=== PATIENT | female | born 1990 | race Two or more races ===

== ENCOUNTER 2018-09-18 02:32 | Inpatient (IN) | payer BC ==
[2018-09-18] MEDS ORDERED: Acetaminophen 325 MG Tab PO PRN (14:20)
[2018-09-18] MEDS ORDERED: Sodium Chloride 0.9% 10 ML Syringe FLUSH PRN (14:20)
[2018-09-18] MEDS ORDERED: Nalbuphine 20 MG/ML 1 ML Syringe IVPUSH ONE (14:25)
[2018-09-18] MEDS ORDERED: Oxytocin/Lactated Ringers 10 UNIT/1,000 ML BAG IV SCH (14:30)
[2018-09-18] MEDS ORDERED: Nalbuphine 20 MG/ML 1 ML Syringe IVPUSH PRN (16:48)
[2018-09-18] MEDS: Lactated Ringers 1,000 ML IV SCH ×3 (18:33→21:30)
[2018-09-18] MEDS ORDERED: ePHEDrine 50 MG/ML SDV IVPUSH PRN (19:09)
[2018-09-18] MEDS ORDERED: Ondansetron 4 MG/2 ML SDV IVPUSH PRN (19:09)
[2018-09-18] MEDS ORDERED: fentaNYL/Bupivacaine-NS 2 MCG/ML-0.125%/PF 100 ML Bag EPIDUR PRN (19:09)
[2018-09-18] MEDS ORDERED: fentaNYL 100 MCG/2 ML SDV EPIDUR PRN (19:09)
--- NOTE | 2018-09-18 19:11 | PCM.PREANE ---
Preanesthetic Assessment - Anesthesia/Transfusion/Family Hx Anesthesia History: Prior Anesthesia Without Reaction Family History of Anesthesia Reaction: No Transfusion History: No Prior Transfusion(s) Intubation History: Unknown - Review of Systems General: No Symptoms Pulmonary: No Symptoms Cardiovascular: No Symptoms Gastrointestinal: No Symptoms Neurological: No Symptoms Other: Reports: None, Easy Bruising - Physical Assessment NPO Status Date: 09/18/18 NPO Status Time: 11:00 Pulse: 90 O2 Sat by Pulse Oximetry: 99 Respiratory Rate: 16 Blood Pressure: 126/80 Temperature: 36.6 C Vital Signs: Last Vital Signs Temp 36.6 C 09/18/18 14:20 Pulse Resp 16 09/18/18 14:20 BP 126/80 09/18/18 14:20 Pulse Ox Height: 1.63 m Weight: 78.925 kg ASA Class: 2 Mental Status: Alert & Oriented x3 Airway Class: Mallampati = 2 Dentition: Reports: Normal Dentition, Caries Thyro-Mental Finger Breadths: 3 Mouth Opening Finger Breadths: 3 ROM/Head Extension: Full Lungs: Clear to Auscultation, Normal Respiratory Effort Cardiovascular: Regular Rate, Regular Rhythm, No Murmurs - Lab Values: Laboratory Last Values WBC 14.66 K/mm3 (3.98-10.04) H 09/18/18 14:35 RBC 4.29 M/mm3 (3.98-5.22) 09/18/18 14:35 Hgb 11.9 gm/L (11.2-15.7) 09/18/18 14:35 Hct 36.1 % (34.1-44.9) 09/18/18 14:35 MCV 84.1 fl (79.4-94.8) 09/18/18 14:35 MCH 27.7 pg (25.6-32.2) 09/18/18 14:35 MCHC 33.0 g/dl (32.2-35.5) 09/18/18 14:35 RDW Std Deviation 42.4 fL (36.4-46.3) 09/18/18 14:35 Plt Count 267 K/mm3 (182-369) 09/18/18 14:35 MPV 9.8 fl (9.4-12.3) 09/18/18 14:35 Above labs reviewed and noted and within acceptable ranges to proceed with epidural. 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: Hematologic History: Reports: Anemia Other Hematologic History: Occasionally takes iron for the complication - SUBSTANCE USE Smoking Status *Q: Never Smoker Second Hand Smoke Exposure: No Recreational Drug Use History: No - HOME MEDS Home Medications: Home Meds Docosahexanoic Acid [DHA] 100 mg PO 09/18/18 [History] Ferrous Sulfate [Iron] 325 mg PO 09/18/18 [History] Vit #76/Iron,Carb/Fa [Pnv 29-1 Tablet] 1 each PO 09/18/18 [History] - CURRENT (IN HOUSE) MEDS Current Meds: Current Medications Acetaminophen (Tylenol) 650 mg PO Q4H PRN PRN Reason: Fever greater than 100.4 Lactated Ringer's (Ringers, Lactated) 1,000 mls @ 40 mls/hr IV ASDIRECTED YOVANI Last Admin: 09/18/18 18:33 Dose: 40 mls/hr Oxytocin/Lactated Ringer's (Pitocin In Lr 10 Units/1,000 Ml) 10 unit in 1,000 mls @ 12 mls/hr IV TITRATE YOVANI; Protocol Nalbuphine HCl (Nubain) 10 mg IVPUSH ONETIME PRN PRN Reason: pain Last Admin: 09/18/18 17:04 Dose: 10 mg Sodium Chloride (Saline Flush) 10 ml FLUSH ASDIRECTED PRN PRN Reason: Keep Vein Open Discontinued Medications Nalbuphine HCl (Nubain) 1 mg IVPUSH ONETIME ONE Stop: 09/18/18 14:26
[2018-09-18] MEDS ORDERED: Phenylephrine 1 MG in Sodium Chloride 0.9% 10 ML IV SCH (19:15)
[2018-09-18] MEDS ORDERED: Bupivacaine 0.25% 10 ML SDV ONE ×3 (22:00)
[2018-09-18] MEDS ORDERED: Lidocaine 1.5% with EPINEPHrine 1:200,000 5 ML Amp ONE ×3 (22:00)
--- NOTE | 2018-09-19 03:32 | PCM.LDHP ---
L&D History of Present Illness - General Date of Service: 09/18/18 Admit Problem/Dx: Patient Status Order with Admit Dx/Problem 09/18/18 13:00 Patient Status [ADT] Routine Admission Diagnosis/Problem Admission Diagnosis/Problem Source of Information: Patient, Old Records - History of Present Illness Introduction:: 28 year old at 40w0d here for elective induction of labor. 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: Hematologic History: Reports: Anemia Other Hematologic History: Occasionally takes iron for the complication Social & Family History - Family History Family Medical History: Noncontributory - Tobacco Use Smoking Status *Q: Never Smoker Second Hand Smoke Exposure: No - Recreational Drug Use Recreational Drug Use: No H&P Review of Systems - Review of Systems: Review Of Systems: See Below General: Reports: No Symptoms HEENT: Reports: No Symptoms Pulmonary: Reports: No Symptoms Cardiovascular: Reports: No Symptoms Gastrointestinal: Reports: No Symptoms Genitourinary: Reports: No Symptoms Musculoskeletal: Reports: No Symptoms Skin: Reports: No Symptoms Psychiatric: Reports: No Symptoms Neurological: Reports: No Symptoms Hematologic/Lymphatic: Reports: No Symptoms Immunologic: Reports: No Symptoms L&D Exam - Exam Exam: See Below - Vital Signs Vital Signs: Last Vital Signs Temp 36.6 C 09/18/18 19:23 Pulse 90 09/18/18 19:23 Resp 16 09/18/18 19:23 BP 126/80 09/18/18 19:23 Pulse Ox 99 09/18/18 19:23 Weight: 78.925 kg - OB Specific Contraction Intensity: Mild to Moderate Presentation: Vertex - Patient Data Lab Results Last 24 hrs: Laboratory Results - last 24 hr 09/18/18 09/18/18 Range/Units 14:35 14:35 WBC 14.66 H (3.98-10.04) K/mm3 RBC 4.29 (3.98-5.22) M/mm3 Hgb 11.9 (11.2-15.7) gm/L Hct 36.1 (34.1-44.9) % MCV 84.1 (79.4-94.8) fl MCH 27.7 (25.6-32.2) pg MCHC 33.0 (32.2-35.5) g/dl RDW Std Deviation 42.4 (36.4-46.3) fL Plt Count 267 (182-369) K/mm3 MPV 9.8 (9.4-12.3) fl RPR Non-reactive (NONREACTIVE) Result Diagrams: 09/18/18 14:35 Problem List Initiated/Reviewed/Updated: Yes Orders Last 24hrs: Active Orders 24 hr Category Date Time Status Patient Status Manage Transfer [TRANSFER] Routine ADT 09/19/18 03:25 Active Patient Status [ADT] Routine ADT 09/18/18 13:00 Active Communication Order [RC] ASDIRECTED Care 09/18/18 14:20 Active Communication Order [RC] ASDIRECTED Care 09/18/18 14:20 Active Communication Order [RC] ASDIRECTED Care 09/18/18 14:20 Active Notify Provider [RC] ASDIRECTED Care 09/18/18 14:20 Active Notify Provider [RC] ASDIRECTED Care 09/18/18 19:09 Active Oxygen Therapy [RC] ASDIRECTED Care 09/18/18 19:09 Active Peripheral IV Care [RC] . DIRECTED Care 09/18/18 14:21 Active Pulse Oximetry [RC] ASDIRECTED Care 09/18/18 19:09 Active Up ad Lise [RC] ASDIRECTED Care 09/18/18 14:21 Active Vital Signs [RC] ASDIRECTED Care 09/18/18 14:20 Active Regular Diet [DIET] Diet 09/18/18 Dinner Active Acetaminophen [Tylenol] Med 09/18/18 14:20 Active 650 mg PO Q4H PRN Lactated Ringers [Ringers, Lactated] 1,000 ml Med 09/18/18 14:30 Active IV ASDIRECTED Nalbuphine [Nubain] Med 09/18/18 16:48 Active 10 mg IVPUSH ONETIME PRN Ondansetron [Zofran] Med 09/18/18 19:09 Active 4 mg IVPUSH ONETIME PRN Oxytocin/Lactated Ringers [Pitocin in LR 10 Units/1,000 Med 09/18/18 14:30 Active ML] 10 unit in 1,000 ml IV TITRATE Phenylephrine [Oumar-Synephrine] 1 mg Med 09/18/18 19:15 Active Sodium Chloride 0.9% [Normal Saline] 10 ml IV TITRATE Sodium Chloride 0.9% [Saline Flush] Med 09/18/18 14:20 Active 10 ml FLUSH ASDIRECTED PRN ePHEDrine [ePHEDrine sulfate] Med 09/18/18 19:09 Active 5 mg IVPUSH ASDIRECTED PRN fentaNYL [Sublimaze] Med 09/18/18 19:09 Active 100 mcg EPIDUR Q3H PRN fentaNYL/Bupivacaine/NS/PF [kgylxVLU-Xsvpm-GT 2 MCG/ML- Med 09/18/18 19:09 Active 0.125%] 100 ml EPIDUR ASDIRECTED PRN Peripheral IV Insertion Adult [OM.PC] Routine Oth 09/18/18 14:20 Ordered Saline Lock Insert [OM.PC] Routine Oth 09/18/18 14:20 Ordered Resuscitation Status Routine Resus Stat 09/19/18 03:27 Ordered Medication Orders Acetaminophen (Tylenol) 650 mg PO Q4H PRN PRN Reason: Fever greater than 100.4 Ephedrine Sulfate (Ephedrine Sulfate) 5 mg IVPUSH ASDIRECTED PRN PRN Reason: Hypotension Fentanyl (Sublimaze) 100 mcg EPIDUR Q3H PRN PRN Reason: Pain Last Admin: 09/18/18 19:24 Dose: 100 mcg Fentanyl/Bupivacaine HCl (Dpzapvro-Gsluc-Zw 2 Mcg/Ml-0.125%) 100 ml EPIDUR ASDIRECTED PRN PRN Reason: Pain Last Admin: 09/18/18 19:24 Dose: 100 ml Lactated Ringer's (Ringers, Lactated) 1,000 mls @ 40 mls/hr IV ASDIRECTED YOVANI Last Admin: 09/18/18 21:30 Dose: 40 mls/hr Infusion: 09/18/18 21:30 Dose: 40 mls/hr Admin: 09/18/18 21:28 Dose: 40 mls/hr Infusion: 09/18/18 21:28 Dose: 40 mls/hr Admin: 09/18/18 18:33 Dose: 40 mls/hr Oxytocin/Lactated Ringer's (Pitocin In Lr 10 Units/1,000 Ml) 10 unit in 1,000 mls @ 12 mls/hr IV TITRATE YOVANI; Protocol Last Titration: 09/18/18 23:02 Dose: 8 munits/min, 48 mls/hr Titration: 09/18/18 22:29 Dose: 6 munits/min, 36 mls/hr Titration: 09/18/18 22:02 Dose: 4 munits/min, 24 mls/hr Admin: 09/18/18 21:30 Dose: 2 munits/min, 12 mls/hr Phenylephrine HCl 1 mg/ Sodium (Chloride) 10.1 mls @ 1 mls/sec IV TITRATE YOVANI; Protocol Nalbuphine HCl (Nubain) 10 mg IVPUSH ONETIME PRN PRN Reason: pain Last Admin: 09/18/18 17:04 Dose: 10 mg Ondansetron HCl (Zofran) 4 mg IVPUSH ONETIME PRN PRN Reason: Nausea/Vomiting Sodium Chloride (Saline Flush) 10 ml FLUSH ASDIRECTED PRN PRN Reason: Keep Vein Open Assessment/Plan Comment:: 28 year old here for induction. AROM clear fluid. Pitocin. anticipate unless otherwise indicated
--- NOTE | 2018-09-19 03:33 | PCM.PNLD ---
Labor Progress Note - VS & Meds Vital Signs: Last Vital Signs Temp 36.6 C 09/18/18 19:23 Pulse 90 09/18/18 19:23 Resp 16 09/18/18 19:23 BP 126/80 09/18/18 19:23 Pulse Ox 99 09/18/18 19:23 Active Medications: Current Medications Acetaminophen (Tylenol) 650 mg PO Q4H PRN PRN Reason: Fever greater than 100.4 Ephedrine Sulfate (Ephedrine Sulfate) 5 mg IVPUSH ASDIRECTED PRN PRN Reason: Hypotension Fentanyl (Sublimaze) 100 mcg EPIDUR Q3H PRN PRN Reason: Pain Last Admin: 09/18/18 19:24 Dose: 100 mcg Fentanyl/Bupivacaine HCl (Pimfvxir-Vukdr-Go 2 Mcg/Ml-0.125%) 100 ml EPIDUR ASDIRECTED PRN PRN Reason: Pain Last Admin: 09/18/18 19:24 Dose: 100 ml Lactated Ringer's (Ringers, Lactated) 1,000 mls @ 40 mls/hr IV ASDIRECTED YOVANI Last Admin: 09/18/18 21:30 Dose: 40 mls/hr Oxytocin/Lactated Ringer's (Pitocin In Lr 10 Units/1,000 Ml) 10 unit in 1,000 mls @ 12 mls/hr IV TITRATE YOVANI; Protocol Last Titration: 09/18/18 23:02 Dose: 8 munits/min, 48 mls/hr Phenylephrine HCl 1 mg/ Sodium (Chloride) 10.1 mls @ 1 mls/sec IV TITRATE YOVANI; Protocol Nalbuphine HCl (Nubain) 10 mg IVPUSH ONETIME PRN PRN Reason: pain Last Admin: 09/18/18 17:04 Dose: 10 mg Ondansetron HCl (Zofran) 4 mg IVPUSH ONETIME PRN PRN Reason: Nausea/Vomiting Sodium Chloride (Saline Flush) 10 ml FLUSH ASDIRECTED PRN PRN Reason: Keep Vein Open Discontinued Medications Nalbuphine HCl (Nubain) 1 mg IVPUSH ONETIME ONE Stop: 09/18/18 14:26 - Uterine Contractions Contraction Intensity: Mild to Moderate - Monitoring Monitor Mode: None Strip Review: Category I - Vaginal Exam Dilation (cm): 6 Effacement (Percent): 100 Station: -2 - Labor Progress (Free Text) Labor Progress: Getting more uncomfortable. Desires epidural.
--- NOTE | 2018-09-19 03:37 | PCM.SN ---
- Free Text/Narrative Note: Stage I - patient presented for induction of labor AROM clear fluid Pitocin given. Progressed nicely to complete with overall reassuring heart tones. Epidural for anesthesia Stage II - spontaneous vaginal delivery of viable female weight 2770 grams Apgars 8 and 9 at 02 32. Head delivered in a controlled manner over intact perineum. Body and shoulders followed without difficulty. Positive cry. Placed on maternal abdomen where cord was clamped and cut and baby was taken to radiant warmer. Stage III - spontaneous vaginal delivery of intact placenta. Three-vessel cord. EBL 200. Small periurethral abrasions hemostatic.
[2018-09-19] MEDS ORDERED: Witch Hazel Medicated Pads 40/Jar TOP PRN (03:45)
[2018-09-19] MEDS: Ibuprofen 600 MG Tab PO PRN ×2 (05:09→16:53)
--- NOTE | 2018-09-19 12:42 | PCM48HPAN ---
Post Anesthesia Note - EVALUATION WITHIN 48HRS OF ANESTHETIC Vital Signs in Normal Range: Yes Patient Participated in Evaluation: Yes Respiratory Function Stable: Yes Airway Patent: Yes Cardiovascular Function Stable: Yes Hydration Status Stable: Yes Pain Control Satisfactory: Yes Nausea and Vomiting Control Satisfactory: Yes Mental Status Recovered: Yes
[2018-09-20] MEDS: Ibuprofen 600 MG Tab PO PRN (00:16)
--- NOTE | 2018-09-20 09:37 | PCM.DCSUM1 ---
Discharge Summary - Hospital Course HPI Initial Comments: PPD1. Doing great. Desires discharge home Diagnosis: Stroke: No - Discharge Data Discharge Date: 09/20/18 Discharge Disposition: Home, Self-Care 01 Condition: Good - Patient Summary/Data Hospital Course: Admitted for induction. No issues. - Patient Instructions Diet: Usual Diet as Tolerated Activity: No Strenuous Activities Driving: May Drive Today Showering/Bathing: May Shower Wound/Incision Care: Keep Operative Site/Wound Site Clean and Dry Notify Provider of: Fever, Increased Pain, Swelling and Redness - Discharge Plan *PRESCRIPTION DRUG MONITORING PROGRAM REVIEWED*: No *COPY OF PRESCRIPTION DRUG MONITORING REPORT IN PATIENT PAUL: No Home Medications: Home Meds Docosahexanoic Acid [DHA] 100 mg PO 09/18/18 [History] Ferrous Sulfate [Iron] 325 mg PO 09/18/18 [History] Vit #76/Iron,Carb/Fa [Pnv 29-1 Tablet] 1 each PO 09/18/18 [History] Referrals: Carla Cifuentes MD [Primary Care Provider] - (2-6 weeks (probably November in [place])) - Discharge Summary/Plan Comment DC Time >30 min.: No - General Info Date of Service: 09/20/18 Functional Status: Reports: Pain Controlled - Review of Systems General: Reports: No Symptoms HEENT: Reports: No Symptoms Pulmonary: Reports: No Symptoms Cardiovascular: Reports: No Symptoms Gastrointestinal: Reports: No Symptoms Genitourinary: Reports: No Symptoms Musculoskeletal: Reports: No Symptoms Skin: Reports: No Symptoms Neurological: Reports: No Symptoms Psychiatric: Reports: No Symptoms - Patient Data Vitals - Most Recent: Last Vital Signs Temp 36.3 C 09/20/18 04:03 Pulse 59 L 09/20/18 04:03 Resp 12 09/20/18 04:03 BP 108/68 09/20/18 04:03 Pulse Ox 99 09/20/18 04:03 Weight - Most Recent: 78.925 kg I&O - Last 24 hours: Intake & Output 09/19/18 09/20/18 09/20/18 22:59 06:59 14:59 Intake Total 0 Balance 0 Med Orders - Current: Current Medications Ibuprofen (Motrin) 600 mg PO Q6H PRN PRN Reason: Mild pain or fever Last Admin: 09/20/18 00:16 Dose: 600 mg Witch Kriss (Tucks) 1 pad TOP ASDIRECTED PRN PRN Reason: Pain Last Admin: 09/19/18 03:57 Dose: 1 pad Discontinued Medications Acetaminophen (Tylenol) 650 mg PO Q4H PRN PRN Reason: Fever greater than 100.4 Ephedrine Sulfate (Ephedrine Sulfate) 5 mg IVPUSH ASDIRECTED PRN PRN Reason: Hypotension Fentanyl (Sublimaze) 100 mcg EPIDUR Q3H PRN PRN Reason: Pain Last Admin: 09/18/18 19:24 Dose: 100 mcg Fentanyl/Bupivacaine HCl (Jzozyest-Bwobs-Wo 2 Mcg/Ml-0.125%) 100 ml EPIDUR ASDIRECTED PRN PRN Reason: Pain Last Admin: 09/18/18 19:24 Dose: 100 ml Lactated Ringer's (Ringers, Lactated) 1,000 mls @ 40 mls/hr IV ASDIRECTED YOVANI Last Admin: 09/18/18 21:30 Dose: 40 mls/hr Oxytocin/Lactated Ringer's (Pitocin In Lr 10 Units/1,000 Ml) 10 unit in 1,000 mls @ 12 mls/hr IV TITRATE YOVANI; Protocol Last Titration: 09/19/18 02:33 Dose: 999 munits/min, 5,994 mls/hr Phenylephrine HCl 1 mg/ Sodium (Chloride) 10.1 mls @ 1 mls/sec IV TITRATE YOVANI; Protocol Nalbuphine HCl (Nubain) 1 mg IVPUSH ONETIME ONE Stop: 09/18/18 14:26 Last Admin: 09/19/18 10:32 Dose: Not Given Nalbuphine HCl (Nubain) 10 mg IVPUSH ONETIME PRN PRN Reason: pain Last Admin: 09/18/18 17:04 Dose: 10 mg Ondansetron HCl (Zofran) 4 mg IVPUSH ONETIME PRN PRN Reason: Nausea/Vomiting Sodium Chloride (Saline Flush) 10 ml FLUSH ASDIRECTED PRN PRN Reason: Keep Vein Open - Exam General: Reports: Alert, Oriented HEENT: Reports: Pupils Equal, Pupils Reactive, EOMI, Mucous Membr. Moist/[place] Neck: Reports: Supple Lungs: Reports: Clear to Auscultation, Normal Respiratory Effort Cardiovascular: Reports: Regular Rate, Regular Rhythm GI/Abdominal Exam: Normal Bowel Sounds, Soft, Non-Tender, No Organomegaly, No Distention, No Abnormal Bruit, No Mass, Pelvis Stable Rectal (Female) Exam: Normal Exam Back Exam: Reports: Normal Inspection Extremities: Normal Inspection, Normal Range of Motion, Non-Tender, No Pedal Edema, Normal Capillary Refill Skin: Reports: Warm, Dry, Intact Wound/Incisions: Reports: Healing Well Neurological: Reports: No New Focal Deficit Psy/Mental Status: Reports: Alert, Normal Affect, Normal Mood
[2018-09-20] MEDS ORDERED: Lanolin 100% Cream 7 GM Tube TOP PRN (13:28)
== END 2018-09-20 13:55 | disposition home or self-care (01) | DRG 560 ==
LOC: JD.OB 02:32 → OBSVTOIN 09-19 02:32 → JD.OB 09-19 02:33
PROVIDERS: ADMIT Obstetrics & Gynecology; ATTEND Obstetrics & Gynecology
PROC: 3E0R3BZ Introduction of Anesthetic Agent into Spinal Canal, Percutaneous Approach (ICD-10-PCS; 2018-09-18)
PROC: 00HU33Z Insertion of Infusion Device into Spinal Canal, Percutaneous Approach (ICD-10-PCS; 2018-09-18)
PROC: 3E033VJ Introduction of Other Hormone into Peripheral Vein, Percutaneous Approach (ICD-10-PCS; principal; 2018-09-19)
PROC: 10E0XZZ Delivery of Products of Conception, External Approach (ICD-10-PCS; principal; 2018-09-19)
PROC: 10907ZC Drainage of Amniotic Fluid, Therapeutic from Products of Conception, Via Natural or Artificial Opening (ICD-10-PCS; principal; 2018-09-19)
DX: O48.0 Post-term pregnancy (principal); Z3A.40 40 weeks gestation of pregnancy; O99.02 Anemia complicating childbirth; D64.9 Anemia, unspecified; Z37.0 Single live birth
CPT/HCPCS: 01967; 36415; 51702; 59025; 59409; 85027; 86592; A9270-GY; J2300; J2590; J3010; J3490; J7120